=== PATIENT | male | born 1965 | race Asian ===

== ENCOUNTER 2018-10-11 19:36 | Emergency (ER) | payer OTHER ==
[2018-10-11 20:44] VITALS: BP 119/79
--- NOTE | 2018-10-11 20:46 | UC ---
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 WHEN HE STOOD UP HE FELT DIZZY AND NAUSEATED FOR ABOUT 30 SECONDS. HE SAT BACK DOWN ON THE COUCH AND 10 MINUTES LATER WHEN HE STOOD UP IT HAPPENED AGAIN BUT WAS LESS SEVERE. HE LAID DOWN FOR A LITTLE WHILE AND WHEN HE STOOD UP HE AGAIN FELT DIZZY SO HE CAME IN FOR EVALUATION. NO CHEST PAIN, SHORTNESS OF BREATH, HEADACHE OR SWEATS. HE DOES COMPLAIN OF SOME TINGLING IN HIS FINGERS OF HIS RIGHT HAND THAT HAS BEEN GOING ON FOR SEVERAL MONTHS. NO WEAKNESS. ADMITS HE HAS NOT HAD ANYTHING TO EAT OR DRINK FOR ABOUT 7 HOURS. 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 Negative: Vomiting, Diaphoresis, Tinnitus, Chest Pain, SOB, Palpitations, Unsteady Gait, Visual Changes - Allergies/Home Medications Allergies/Adverse Reactions: Allergies Allergy/AdvReac Type Severity Reaction Status Date / Time No Known Allergies Allergy Verified 11/27/14 16:44 PMH/Surg Hx/FS Hx/Imm Hx Endocrine History: Dyslipidemia - Surgical History Surgical History: Yes Surgery Procedure, Year, and Place: anal surgery? (language) - Family History Known Family History: Positive: Non-Contributory - Social History Alcohol Use: None Substance Use Type: None Smoking Status (MU): Never Smoked Tobacco - Immunization History Most Recent Influenza Vaccination: unk Most Recent Tetanus Shot: unk Most Recent Pneumonia Vaccination: n/a Review of Systems All Other Systems Reviewed And Are Negative: Yes Constitutional: Positive: Negative Skin: Positive: Negative Respiratory: Positive: Negative Cardiovascular: Positive: Negative Gastrointestinal: Positive: Negative Neurological: Positive: Paresthesia, Other - DIZZY Physical Exam Triage Information Reviewed: Yes Appearance: Well-Appearing, No Pain Distress, Well-Nourished Vital Signs: Initial Vital Signs Temp 98.4 F 10/11/18 19:44 Pulse 70 10/11/18 19:44 Resp 14 10/11/18 19:44 BP 160/96 10/11/18 19:44 Pulse Ox 96 10/11/18 19:44 Vital Signs Reviewed: Yes Eyes: Positive: Conjunctiva Clear ENT: Positive: Hearing grossly normal, Pharynx normal, TMs normal Neck: Positive: Supple, Nontender, No Lymphadenopathy Respiratory Exam: Normal Cardiovascular Exam: Normal Abdomen Description: Positive: Soft Musculoskeletal: Positive: No Edema Neurological: Positive: Alert, Other: - CN II-XII GROSSLY INTACT BILATERALLY. RAPID ALTERNATING MOVEMENTS INTACT. NEG PRONATOR DRIFT. NEG ROMBERG. 5/5 STRENGTH. HEEL TO PANIAGUA INTACT BILATERALLY. TANDEM GAIT INTACT. FINGER TO NOSE INTACT. NEG TINELS. POS PHALENS RIGHT WRIST. Psychological: Positive: Normal Response To Family, Age Appropriate Behavior Skin: Negative: Rashes Dizzy Course/Dx - Course Course Of Treatment: REPEAT BP 119/79. POC GLUCOSE 104. PATIENT IS CURRENTLY ASYMPTOMATIC. SYMPTOMS NOT ELICITED IN THE URGENT CARE WITH POSITION CHANGE OR CHANGE IN HEAD POSITION. DISCUSSED TRANSFER TO THE EMERGENCY ROOM FOR FURTHER EVALUATION HOWEVER GIVEN THAT HE IS FEELING WELL AT PRESENT AND HIS VITAL SIGNS ALL LOOK GOOD HE ELECTS TO GO HOME WITH CAREFUL OBSERVATION AND FOLLOW-UP WITH HIS PRIMARY CARE PHYSICIAN. HE WILL GO TO THE ER WITHOUT FAIL IF HIS SYMPTOMS WORSEN. PARESTHESIAS IN THE FINGERS OF RIGHT HAND LIKELY DUE TO CARPAL TUNNEL SYNDROME. COCK-UP SPLINT APPLIED BY RN. HE WILL WEAR THIS AT NIGHT WHILE SLEEPING AND DURING THE DAY ABLE. FOLLOW-UP WITH ORTHOPEDICS IF NEEDED. - Differential Dx/Diagnosis Provider Diagnosis: Dizziness, Carpal tunnel syndrome of right wrist Discharge - Sign-Out/Discharge Documenting (check all that apply): Patient Departure All imaging exams completed and their final reports reviewed: No Studies - Discharge Plan Condition: Stable Disposition: HOME Patient Education Materials: Paresthesia (ED), Dizziness (ED) Referrals: Jessy Avial MD [Primary Care Provider] - 1 Week Additional Instructions: YOUR DIZZINESS HAS RESOLVED AND WAS NOT ELICITED IN THE URGENT CARE WITH POSITION CHANGE OR CHANGE IN HEAD POSITION. YOUR SYMPTOMS MAY BE DUE TO A STATE OF RELATIVE DEHYDRATION GIVEN HOW LONG IT HAS BEEN SINCE YOU LAST HAD ANYTHING TO EAT OR DRINK. BE SURE TO STAY HYDRATED THROUGHOUT THE DAY AND EAT REGULARLY. YOUR BLOOD PRESSURE NORMALIZED TO 119/79 AND YOUR FINGER STICK GLUCOSE WAS NORMAL AT 104. GO TO THE ER WITHOUT FAIL IF YOU DEVELOP RECURRENT DIZZINESS, CHEST PAIN, SHORTNESS OF BREATH, NAUSEA, FEVER, SWEATS OR ANY OTHER CONCERNING SYMPTOMS. CARPAL TUNNEL SYNDROME: Your examination suggests carpal tunnel syndrome. This syndrome is due to pressure on a nerve in the wrist. The pressure may be due to an old injury, hard work using the wrist, or arthritis in the wrist. Typical symptoms are tingling, numbness, and pain in the palm, thumb, index and middle fingers, and one side of the ring finger. This problem often has to be repaired surgically. If the physician feels that your problem is of a more chronic nature, you will be referred to a specialist for further care. Sometimes a splint, ice packs, and antiinflammatory medication make the syndrome go away -- if symptoms have just started. You should call the doctor if pain increases, if you develop difficulty using the thumb or fingers, or if major swelling occurs. WEAR THE SPLINT AT NIGHT AND DURING THE DAY ABLE TO HELP REDUCE THE RISK OF FURTHER IRRITATION OF THE NERVE. - Billing Disposition and Condition Condition: STABLE Disposition: Home
== END 2018-10-11 21:18 | disposition home or self-care (01) ==
LOC: UCEAST 19:36
DX: R42 Dizziness and giddiness (principal); G56.01 Carpal tunnel syndrome, right upper limb
CPT/HCPCS: 99212; G0463

== ENCOUNTER 2023-08-01 16:26 | Observation (INO) ==
[2023-08-01 20:20] LABS: ABS Lymphocytes 1.7 10^3/uL (1.0-4.8); ABS Monocytes 0.4 10^3/uL (0.0-1.1); ABS Neutrophils 4.6 10^3/uL (1.5-7.6); ABS Nucleated RBC 0.03 10^3/ul; Eosinophil % 0.5 %; Hematocrit 45.8 % (38-53); Hemoglobin 16.4 g/dL (13.2-16.3); Lymphocyte % 25.2 %; Mean Corpuscular Hemoglobin 32.8 pg (27-33); Mean Corpuscular Hgb Conc 35.8 g/dL (31-36); Mean Corpuscular Volume 91.7 fL (80-97); Mean Platelet Volume 7.6 fL (7.5-11.2); Nucleated Red Blood Cells % 0.4 %/100WBC (0.0-0.8); Platelet Count 183 10^3/uL (150-450); Red Blood Count 4.99 10^6/uL (4.06-5.63); Red Cell Distribution Width 12.5 % (12-17); White Blood Count 6.8 10^3/uL (3.6-10.2)
[2023-08-01 20:28] LABS: INR 1.1 (0.83-1.13)
[2023-08-01 20:46] LABS: High Sens Troponin Baseline 5 pg/mL (<20)
[2023-08-01 21:06] LABS: ALT 23 U/L (7-52); Albumin 5.1 g/dL (3.2-5.2); Albumin/Globulin Ratio 1.8 (1-3); Alkaline Phosphatase 54 U/L (35-149); Anion Gap 5 mmol/L (2-16); Blood Urea Nitrogen 9 mg/dL (6-24); CO2 Carbon Dioxide 27 mmol/L (22-32); Calcium 9.6 mg/dL (8.6-10.3); Chloride 102 mmol/L (101-111); Creatinine, Serum 0.65 mg/dL (0.67-1.17); Globulin 2.8 g/dL (2-4); Glucose 132 mg/dL (70-100); Sodium 134 mmol/L (135-145); Total Protein 7.9 g/dL (6.4-8.9); eGFR CKD-EPI 107.9 (>60)
[2023-08-01 21:48] LABS: High Sensitivity Troponin 1 Hr 6 pg/mL (<20)
[2023-08-01 21:59] LABS: Potassium Redraw 3.6 mmol/L (3.5-5.0)
[2023-08-01] MEDS: Iohexol 350 (CONTRAST) 500 ML MDV IV ONE (22:35)
[2023-08-02] LABS: ALT 20 U/L (7-52); Albumin 4.4 g/dL (3.2-5.2); Albumin/Globulin Ratio 1.8 (1-3); Alkaline Phosphatase 48 U/L (35-149); Anion Gap 8 mmol/L (2-16); Blood Urea Nitrogen 9 mg/dL (6-24); CO2 Carbon Dioxide 27 mmol/L (22-32); Calcium 8.8 mg/dL (8.6-10.3); Chloride 100 mmol/L (101-111); Creatinine, Serum 0.64 mg/dL (0.67-1.17); Globulin 2.4 g/dL (2-4); Glucose 117 mg/dL (70-100); Sodium 135 mmol/L (135-145); Total Bilirubin 0.9 mg/dL (0.2-1.0); Total Protein 6.8 g/dL (6.4-8.9); eGFR CKD-EPI 108.4 (>60)
[2023-08-02 01:35] LABS: Potassium Redraw 3.7 mmol/L (3.5-5.0)
[2023-08-03 10:08] VITALS: BP 138/84
== END 2023-08-03 15:55 | disposition home or self-care (01) ==
LOC: EDHOLD 16:26 → ED 16:26 → MEDTELE 08-02 10:33
PROVIDERS: ADMIT Student in an Organized Health Care Education/Training Program; ATTEND Internal Medicine Hematology & Oncology